=== PATIENT | male | born 1955 | race Caucasian/White ===

== ENCOUNTER 2021-02-20 14:28 | Day surgery (SDC) | payer OTHER ==
[~2021-02-20] VITALS: Ht 185.4 cm; Wt 102.0 kg
[2021-02-20] MEDS ORDERED: NAPROSYN500 MG PO (15:16)
[2021-02-20 15:17] VITALS: BP 135/80; PULSE 64; TEMP 97.5
[2021-02-20] MEDS ORDERED: PRILOSEC 20MG20 MG PO (15:17)
[2021-02-20] MEDS ORDERED: PYRIDIUM 100MG100 MG PO (17:10)
[2021-02-20 17:30] VITALS: BP 150/73; PULSE 58
[2021-02-20 17:45] VITALS: BP 149/90; PULSE 57
[2021-02-20 18:00] VITALS: BP 144/71; PULSE 52
[2021-02-20 18:01] VITALS: TEMP 98.2
[2021-02-20 18:15] VITALS: BP 144/71; PULSE 54
--- NOTE | 2021-02-20 19:05 | NUR ---
Pt arrived to floor at 1730 via cart [facility] PACU staff, sitting up in bed, able to void independently, ordered sandwhich box and able to eat it without any complaints, drinikning well, walking well. Discharge teachign completed, VSS, INT dc'd, tip intanct. Pt left with all belongings, escorted out by medical staff, family to drive home, criteria met.
== END 2021-02-20 19:00 | disposition home or self-care (01) ==
LOC: SDCO 14:28
DX: N20.1 Calculus of ureter (principal); E78.5 Hyperlipidemia, unspecified; M47.899 Other spondylosis, site unspecified; G89.29 Other chronic pain; M54.9 Dorsalgia, unspecified; N40.0 Benign prostatic hyperplasia without lower urinary tract symptoms; Z20.822 Contact with and (suspected) exposure to COVID-19; Z90.89 Acquired absence of other organs; Z79.899 Other long term (current) drug therapy; Z87.891 Personal history of nicotine dependence
CPT/HCPCS: C1769; J0690; J1100; J1885; J2405; J2704; J3010